=== PATIENT | female | born 1945 | race Hispanic/Latino ===

== ENCOUNTER 2017-04-26 17:37 | Inpatient (IN) | payer MEDICARE ==
[2017-04-26] MEDS ORDERED: Sodium Chloride 0.9% 500 ML IV ONE ×2 (18:37→19:04)
[2017-04-26 19:23] LABS: BASO % 0.3 % (0.0-2.0); EOS # 0.1 K/uL (0.0-0.7); EOS % 0.8 % (0.0-4.0); HEMATOCRIT 40.3 % (34.0-47.0); LYMPH % 10.4 % (20.0-40.0); MEAN CELL VOLUME 80.9 fL (81.0-99.0); MEAN CORPUSCULAR HEMOGLOBIN 26.7 pg (27.0-31.0); MEAN PLATELET VOLUME 9.1 fL (7.2-11.7); MONO # 0.7 K/uL (0.0-0.8); MONO % 7.6 % (0.0-10.0); RED CELL DISTRIBUTION WIDTH 14.7 % (11.5-14.5); WHITE BLOOD COUNT 9.2 K/uL (4.8-10.8)
[2017-04-26 19:24] LABS: RBC URINE 2 /hpf (0-3); URINE BILIRUBIN NEGATIVE (NEGATIVE); URINE BLOOD TRACE (NEGATIVE); URINE COLOR Colorless (YELLOW); URINE GLUCOSE (UA) NORMAL (Normal); URINE KETONE NEGATIVE (NEGATIVE); URINE LEUKOCYTE ESTERASE NEG Leu/uL (Negative); URINE PROTEIN NEGATIVE (NEGATIVE); URINE UROBILINOGEN NORMAL mg/dL (0.2-1.0); WBC URINE 1 /hpf (0-5)
[2017-04-26 19:28] LABS: CHLORIDE 95 mmol/L (98-107); POTASSIUM 3.4 mmol/L (3.6-5.2); SODIUM 136 mmol/L (132-148)
[2017-04-26 19:30] LABS: ALB/GLOB RATIO 1.4 (1.0-2.1); AST/SGOT 33 U/L (14-36); BILIRUBIN,TOTAL 0.7 mg/dL (0.2-1.3); CARBON DIOXIDE 29 mmol/L (22-30); GFR AFRICAN-AMERICAN > 60
[2017-04-26 19:31] LABS: ALKALINE PHOSPHATASE 103 U/L (38-126); ALT/SGPT 33 U/L (9-52); BLOOD UREA NITROGEN 12 mg/dL (7-17); CALCIUM 9.7 mg/dl (8.6-10.4); GLUCOSE,RANDOM 79 mg/dL (65-105)
[2017-04-26 19:34] LABS: INR 2.7
[2017-04-26] MEDS ORDERED: Iodixanol 320 MG/ML 100 ML BOTTLE IV ONE (20:33)
--- NOTE | 2017-04-26 21:38 | CT ---
EXAM: CT Abdomen and Pelvis With Intravenous Contrast CLINICAL HISTORY: 71 years old, female; Pain; Abdominal pain; Flank; Left lower quadrant (llq); Additional info: Llq pain, R/O diverticulitis TECHNIQUE: Axial computed tomography images of the abdomen and pelvis with intravenous contrast. All CT scans at this facility use one or more dose reduction techniques, viz.: automated exposure control; ma/kV adjustment per patient size (including targeted exams where dose is matched to indication; i.e. head); or iterative reconstruction technique. Coronal and sagittal reformatted images were created and reviewed. CONTRAST: 100 mL of visipaque 320 administered intravenously. COMPARISON: No relevant prior studies available. FINDINGS: Limitations: Motion artifact - mild. Lower thorax: Moderate cardiomegaly. Valve replacement. Minimal atelectasis/scarring. ABDOMEN: Liver: Fatty infiltration. Apparent 0.5 x 0.5 x 0.7 cm enhancing lesion within RIGHT lobe. Gallbladder and bile ducts: No calcified stones. No ductal dilation. Pancreas: No ductal dilation. No mass. Spleen: No splenomegaly. Adrenals: No mass. Kidneys and ureters: Mild malrotation of RIGHT kidney. No hydronephrosis. Stomach and bowel: Scattered diverticula within colon. Ahmp-dt-hilsavhs mural thickening short segment of distal descending colon. Ffyu-qv-oapyzcco stranding within adjacent fat. No obstruction. Appendix: No findings to suggest acute appendicitis. PELVIS: Bladder: Unremarkable. Reproductive: Unremarkable as visualized. ABDOMEN and PELVIS: Intraperitoneal space: Trace free fluid within pelvis. No free air. Bones/joints: Median sternotomy. Degenerative changes of spine. No acute fracture. Soft tissues: Unremarkable. Vasculature: Mild atherosclerotic disease. No aneurysm. Lymph nodes: No pathologically enlarged lymph nodes. IMPRESSION: 1. Findings compatible with acute diverticulitis of descending colon. Recommend endoscopy following resolution. 2. Liver lesion, indeterminate. Recommend nonemergent MRI. 3. Incidental/non-acute findings are described above.
--- NOTE | 2017-04-26 22:14 | C.PDOC ---
Time Seen by Provider: 04/26/17 18:19 Chief Complaint (Nursing): Abdominal Pain History Per: Patient, Family Onset/Duration Of Symptoms: Days (9) Current Symptoms Are (Timing): Still Present Severity: Moderate Location Of Pain/Discomfort: LLQ Quality Of Discomfort: "Pain" Associated Symptoms: Diarrhea, Back Pain Exacerbating Factors: Food Alleviating Factors: None Additional History Per: Prior Records Past Medical History Reviewed: Historical Data, Nursing Documentation Vital Signs: Last Vital Signs Temp 98.1 F 04/26/17 20:40 Pulse 88 04/26/17 20:40 Resp 18 04/26/17 20:40 BP 137/79 04/26/17 20:40 Pulse Ox 96 04/26/17 22:15 - Medical History PMH: HTN, Hypercholesterolemia Other Surgeries: Aortic valve replacement Family History: States: Unknown Family Hx - Social History Hx Tobacco Use: No Hx Alcohol Use: No Hx Substance Use: No - Immunization History Hx Tetanus Toxoid Vaccination: No Hx Influenza Vaccination: Yes Hx Pneumococcal Vaccination: Yes Review Of Systems Except As Marked, All Systems Reviewed And Found Negative. Constitutional: Negative for: Fever Cardiovascular: Negative for: Chest Pain Respiratory: Negative for: Shortness of Breath Gastrointestinal: Positive for: Abdominal Pain. Negative for: Vomiting, Melena , Hematochezia, Hematemesis Genitourinary: Negative for: Dysuria Musculoskeletal: Positive for: Back Pain (low). Negative for: Neck Pain Skin: Negative for: Rash Neurological: Negative for: Weakness, Numbness, Seizures Physical Exam - Physical Exam Appears: No Acute Distress Skin: Normal Color, Warm, Dry Head: Atraumatic, Normacephalic Eye(s): bilateral: PERRL, EOMI Neck: Normal ROM, Supple Cardiovascular: Rhythm Regular Respiratory: Normal Breath Sounds, No Accessory Muscle Use Gastrointestinal/Abdominal: Soft, Tenderness (LLQ) Back: No CVA Tenderness Extremity: Normal ROM Neurological/Psych: Oriented x3, Normal Motor, Normal Sensation ED Course And Treatment - Laboratory Results Result Diagrams: 04/26/17 19:12 04/26/17 19:12 O2 Sat by Pulse Oximetry: 96 Pulse Ox Interpretation: Normal - CT Scan/US CT abd/pelv Other Rad Studies (CT/US): Read By Radiologist, Radiology Report Reviewed CT/US Interpretation: IMPRESSION: 1. Findings compatible with acute diverticulitis of descending colon. Recommend endoscopy following resolution. 2. Liver lesion, indeterminate. Recommend nonemergent MRI. 3. Incidental/non -acute findings are described above. Progress - Interventions Interventions:: Observation, Intravenous fluid - Medications Administered Intravenous: Opiate, Other (Abx) - Data Reviewed Data Reviewed: Lab, Diagnostic imaging, Old records - Patient Status Patient status: Partially improved - Continuity of Care Discussed patient case with:: Patient, Family-HIPPA compliant, ED Nurse, PMD - Patient Plan Patient Plan: Admission Disposition Discussed With DrJessie: Faith Contreras Comment: He accepted pt on his service. Doctor Will See Patient In The: Hospital Counseled Patient/Family Regarding: Studies Performed, Diagnosis - Disposition Disposition: HOSPITALIZED Disposition Time: 23:00 Condition: FAIR - Clinical Impression Clinical Impression: Acute diverticulitis
[2017-04-26] MEDS ORDERED: metroNIDAZOLE IV 500 mg/100 ml 500 MG/100 ML BAG IVPB STA (22:17)
[2017-04-26] MEDS ORDERED: Ciprofloxacin 400mg/200ml D5W 400 MG/200 ML BAG IVPB STA (22:17)
[2017-04-26] MEDS ORDERED: Ciprofloxacin 400mg/200ml D5W 400 MG/200 ML BAG IVPB ONE (22:33)
[2017-04-26] MEDS ORDERED: metroNIDAZOLE IV 500 mg/100 ml 500 MG/100 ML BAG ONE (22:34)
[2017-04-26] MEDS ORDERED: Morphine 4 MG/ML VIAL ONE (23:33)
[2017-04-27] MEDS: Acetylcysteine 20% Inhal Soln (4ml) INH SCH ×5 (00:30→19:24)
[2017-04-27] MEDS: metroNIDAZOLE IV 500 mg/100 ml 500 MG/100 ML BAG IVPB SCH ×3 (06:06→22:12)
[2017-04-27] MEDS ORDERED: Potassium Chloride 20 mEq ER Tab PO ONE (10:00)
[2017-04-27] MEDS ORDERED: Albuterol 0.083% Inhal Sol (2.5 mg/3 mL) UD IH SCH (10:00)
[2017-04-27] MEDS ORDERED: Ciprofloxacin 400mg/200ml D5W 400 MG/200 ML BAG IVPB SCH (10:00)
[2017-04-27] MEDS: Ciprofloxacin 400mg/200ml D5W 400 MG/200 ML BAG IVPB SCH ×2 (10:43→22:13)
[2017-04-27] MEDS: Albuterol 0.083% Inhal Sol (2.5 mg/3 mL) UD IH SCH ×2 (13:45→19:25)
[2017-04-27] MEDS: Fluticasone-Salmeterol 250-50mcg Diskus IH SCH (19:25)
[2017-04-28] MEDS: Acetylcysteine 20% Inhal Soln (4ml) INH SCH ×4 (02:55→19:21)
[2017-04-28] MEDS: Albuterol 0.083% Inhal Sol (2.5 mg/3 mL) UD IH SCH ×4 (02:55→19:21)
--- NOTE | 2017-04-28 04:07 | HP ---
HISTORY OF PRESENT ILLNESS: This is a 71-year-old [place] female with a history of multiple medical problems who presented to emergency room with symptoms of abdominal pain for one week duration. The patient was evaluated and she was found to have tenderness in the left lower quadrant with CAT scan finding of diverticulitis of the descending colon. The patient was admitted for further management. The patient has stated that she has intermittent diarrhea during the last one week, but denies any rectal bleeding. REVIEW OF SYSTEMS: Other review of systems is negative. ALLERGIES: NO KNOWN ALLERGY. HOME MEDICATIONS: Warfarin 2 mg daily, CellCept 1000 mg twice a day, Plaquenil 200 mg twice a day, Lasix 20 mg daily, bisoprolol 10 mg daily, and Lipitor 10 mg daily. PAST MEDICAL HISTORY: 1. Status post aortic valve replacement with prosthetic valve, on anticoagulant. 2. Interstitial lung disease. 3. Systemic lupus erythematosus. 4. Hypertension. SOCIAL HISTORY: No history of smoking, ETOH, or substance abuse. FAMILY HISTORY: Not contributory. PHYSICAL EXAMINATION GENERAL: The patient is in bed, comfortable, not in any cardiopulmonary distress. VITAL SIGNS: Blood pressure 107/64, temperature 98.7, respiratory rate 20, and pulse 82. HEENT: Pupils are equal and reactive to light. Normal-appearing mucosa of the conjunctivae, oropharyngeal and nasal membrane mucosa. NECK: Supple. No JVD. No carotid bruit. No lymph nodes. No thyromegaly. CHEST AND LUNGS: Bilateral symmetrical expansion. Good air exchange. No rales. No rhonchi. CARDIOVASCULAR: PMI not localized. S1 and S2. No additional sounds. ABDOMEN: Normoactive bowel sounds. Tenderness of the left lower quadrant. No organomegaly. No masses. EXTREMITIES: No cyanosis, no clubbing, no edema. CENTRAL NERVOUS SYSTEM: Alert, awake, and oriented x3. No neurological deficits could be appreciated. ASSESSMENT: 1. Diverticulitis of the descending colon. 2. Interstitial lung disease. 3. Systemic lupus erythematosus. 4. Hypertension. PLAN: Continue current medications and to restart Cipro 400 mg IV q. 12 hours and Flagyl 500 mg three times a day and we will decrease the dose of CellCept until the infection will be controlled. We will do GI consult. [facility] MD Ben [facility] # [id number]
[2017-04-28] MEDS: metroNIDAZOLE IV 500 mg/100 ml 500 MG/100 ML BAG IVPB SCH ×3 (05:28→21:14)
[2017-04-28] MEDS: Fluticasone-Salmeterol 250-50mcg Diskus IH SCH ×2 (07:36→19:21)
[2017-04-28] MEDS: Lidocaine 5% Patch TD SCH (10:00)
[2017-04-28] MEDS: Ciprofloxacin 400mg/200ml D5W 400 MG/200 ML BAG IVPB SCH ×2 (10:04→21:53)
[2017-04-28 12:07] LABS: INR 4.2
--- NOTE | 2017-04-28 20:15 | PN ---
DATE: 04/28/2017 DAILY PROGRESS NOTE SUBJECTIVE: She has still lower abdominal pain that require Morphine. PHYSICAL EXAMINATION: VITAL SIGNS: Blood pressure 112/67, temperature 98.5, respiratory rate 20, pulse 90. HEENT: Pupils are equal and reactive to light. Normal-appearing mucosa of the conjunctivae, oropharyngeal and nasal membrane mucosa. NECK: Supple. No JVD. No carotid bruit. No lymph node. No thyromegaly. CHEST AND LUNGS: Bilateral symmetrical expansion. Good air exchange. No rales. No rhonchi. CARDIOVASCULAR: PMI not localized. S1 and S2. No additional sounds. ABDOMEN: Normal active bowel sounds. No tenderness. No organomegaly. No masses. EXTREMITIES: No cyanosis. No clubbing. No edema. CLINICAL EDUCATION SPECIALIST: Alert, awake, and oriented x3. No neurological deficits could be appreciated. ASSESSMENT: 1. Descending colon diverticulitis. 2. Interstitial lung disease. 3. Hypertension. 4. Prosthetic aortic valve. PLAN: Continue current IV antibiotics and monitor PT/INR, GI consult. We will add probiotic. Faith Contreras MD
[2017-04-29] MEDS: Acetylcysteine 20% Inhal Soln (4ml) INH SCH ×4 (01:25→19:33)
[2017-04-29] MEDS: Albuterol 0.083% Inhal Sol (2.5 mg/3 mL) UD IH SCH ×4 (01:25→19:33)
[2017-04-29] MEDS: metroNIDAZOLE IV 500 mg/100 ml 500 MG/100 ML BAG IVPB SCH ×3 (05:24→22:05)
[2017-04-29] MEDS: Fluticasone-Salmeterol 250-50mcg Diskus IH SCH ×2 (07:25→19:34)
[2017-04-29] MEDS: Ciprofloxacin 400mg/200ml D5W 400 MG/200 ML BAG IVPB SCH ×2 (09:18→22:09)
[2017-04-29] MEDS: Lidocaine 5% Patch TD SCH (09:29)
[2017-04-29 11:48] LABS: CHLORIDE 101 mmol/L (98-107); POTASSIUM 3.8 mmol/L (3.6-5.2); SODIUM 134 mmol/L (132-148)
[2017-04-29 11:50] LABS: BILIRUBIN,TOTAL 0.5 mg/dL (0.2-1.3); GFR AFRICAN-AMERICAN > 60
[2017-04-29 11:51] LABS: ALB/GLOB RATIO 1.2 (1.0-2.1); ALKALINE PHOSPHATASE 61 U/L (38-126); ALT/SGPT 27 U/L (9-52); AST/SGOT 25 U/L (14-36); BLOOD UREA NITROGEN 4 mg/dL (7-17); CALCIUM 8.2 mg/dl (8.6-10.4); CARBON DIOXIDE 23 mmol/L (22-30); GLUCOSE,RANDOM 132 mg/dL (65-105); TOTAL PROTEIN 6.6 g/dL (6.3-8.3)
--- NOTE | 2017-04-29 16:46 | CP.PCM.CON ---
History of Present Illness - History of Present Illness History of Present Illness: CC: Diverticulitis HPI: 71 year old woman admitted with moderate LLQ pain and diarrhea, found to have descending colon diverticulitis on CT scan. Patient was admitted 2 days ago , and is being treated with Cipro and Flagyl and reports improvement in abdominal pain. She had a good BM today and is tolerating liquid diet. Patient denies rectal bleeding. Review of Systems - Constitutional Constitutional: absent: Chills, Fever - EENT Eyes: absent: Change in Vision Ears: absent: Tinnitus Nose/Mouth/Throat: absent: Nasal Discharge - Cardiovascular Cardiovascular: absent: Chest Pain - Respiratory Respiratory: absent: Dyspnea - Gastrointestinal Gastrointestinal: Abdominal Pain, Loose Stools. absent: Dysphagia, Melena, Nausea - Genitourinary Genitourinary: absent: Dysuria - Musculoskeletal Musculoskeletal: absent: Back Pain - Integumentary Integumentary: absent: Dry Skin - Neurological Neurological: absent: Vertigo - Psychiatric Psychiatric: absent: Anxiety - Hematologic/Lymphatic Hematologic: absent: Easy Bruising Past Patient History - Past Medical History & Family History Past Medical History?: Yes - Past Social History Smoking Status: Never Smoked - CARDIAC Hx Cardiac Disorders: Yes Hx Hypercholesterolemia: Yes Hx Hypertension: Yes - PULMONARY Hx Respiratory Disorders: No - NEUROLOGICAL Hx Neurological Disorder: No - HEENT Hx HEENT Problems: No - RENAL Hx Chronic Kidney Disease: No - ENDOCRINE/METABOLIC Hx Endocrine Disorders: No - HEMATOLOGICAL/ONCOLOGICAL Hx Blood Disorders: No - INTEGUMENTARY Hx Dermatological Problems: No - MUSCULOSKELETAL/RHEUMATOLOGICAL Hx Musculoskeletal Disorders: Yes (SLE) Hx Falls: No - GASTROINTESTINAL Hx Gastrointestinal Disorders: No - GENITOURINARY/GYNECOLOGICAL Hx Genitourinary Disorders: No - PSYCHIATRIC Hx Psychophysiologic Disorder: No Hx Substance Use: No - SURGICAL HISTORY Hx Surgeries: No Hx Vascular Surgery: Yes (Aortic Valve Replacement) Other/Comment: Aortic valve replacement - ANESTHESIA Hx Anesthesia: Yes Hx Anesthesia Reactions: No Meds Allergies/Adverse Reactions: Allergies Allergy/AdvReac Type Severity Reaction Status Date / Time No Known Allergies Allergy Verified 04/26/17 17:53 - Medications Medications: Current Medications Acetylcysteine (Acetylcysteine 20%) 4 ml INH RQ6 [facility] Last Admin: 04/29/17 13:14 Dose: 4 ml Albuterol Sulfate (Albuterol 0.083% Inhal Tere (2.5 Mg/3 Ml) Ud) 2.5 mg IH RQ6 [facility] Last Admin: 04/29/17 13:14 Dose: 2.5 mg Bisoprolol Fumarate (Zebeta) 10 mg PO DAILY [facility] Last Admin: 04/29/17 09:16 Dose: 10 mg Hydroxychloroquine Sulfate (Plaquenil) 400 mg PO DAILY [facility] Last Admin: 04/29/17 09:16 Dose: 400 mg Metronidazole (Flagyl) 500 mg in 100 mls @ 100 mls/hr IVPB Q8 [facility] Last Admin: 04/29/17 14:08 Dose: 100 mls/hr Ciprofloxacin (Cipro 400mg/200ml Dsw) 400 mg in 200 mls @ 133 mls/hr IVPB Q12H [facility] Last Admin: 04/29/17 09:18 Dose: 133 mls/hr Lidocaine (Lidoderm) 2 ea TD DAILY [facility] Last Admin: 04/29/17 09:29 Dose: 2 ea Morphine Sulfate (Morphine) 2 mg IVP Q4 PRN PRN Reason: Pain, severe (8-10) Last Admin: 04/29/17 14:05 Dose: 2 mg Mycophenolate Mofetil (Cellcept) 500 mg PO Q12H [facility] Last Admin: 04/29/17 05:27 Dose: 500 mg Rosuvastatin Calcium (Crestor) 5 mg PO HS [facility] Last Admin: 04/28/17 21:14 Dose: 5 mg Fluticasone/Salmeterol (Advair Diskus 250/50) 1 puff IH RQ12 [facility] Last Admin: 04/29/17 07:25 Dose: 1 puff Physical Exam - Constitutional Appears: No Acute Distress - Head Exam Head Exam: NORMOCEPHALIC - Eye Exam Eye Exam: absent: Scleral icterus - Neck Exam Neck exam: Negative for: Thyromegaly - Respiratory Exam Respiratory Exam: NORMAL BREATHING PATTERN - Cardiovascular Exam Cardiovascular Exam: Systolic Murmur (Valve click present) - GI/Abdominal Exam GI & Abdominal Exam: Soft. absent: Distended, Mass, Rebound, Tenderness Results - Vital Signs Recent Vital Signs: Last Vital Signs Temp 98.1 F 04/29/17 15:00 Pulse 80 04/29/17 15:00 Resp 20 04/29/17 15:00 BP 117/71 04/29/17 15:00 Pulse Ox 99 04/29/17 15:00 - Labs Result Diagrams: 04/26/17 19:12 04/29/17 11:11 Labs: Laboratory Results - last 24 hr 04/29/17 04/29/17 07:04 11:11 PT 59.6 H* D INR 5.0 Sodium 134 Potassium 3.8 Chloride 101 Carbon Dioxide 23 Anion Gap 14 BUN 4 L Creatinine 0.6 L Est GFR ( Amer) > 60 Est GFR (Non-Af Amer) > 60 Random Glucose 132 H Calcium 8.2 L Total Bilirubin 0.5 AST 25 ALT 27 Alkaline Phosphatase 61 Total Protein 6.6 Albumin 3.6 Globulin 3.0 Albumin/Globulin Ratio 1.2 Assessment & Plan (1) Acute diverticulitis Assessment and Plan: Improving Continue Cipro/Flagyl and advance diet as tolerated Status: Acute (2) Benign neoplasm of liver Assessment and Plan: Incidentally found on CT scan. Likely benign. No prior CT available for comparison. Recommend follow up CT in future Status: Acute (3) H/O aortic valve replacement Assessment and Plan: On chronic anticoagulation Management per medical team Status: Acute (4) Systemic lupus erythematosus Assessment and Plan: On Cellcept for this Management per medicine Status: Acute - Date & Time Date: 04/29/17 Time: 16:52
[2017-04-30] MEDS: Acetylcysteine 20% Inhal Soln (4ml) INH SCH ×4 (01:15→19:36)
[2017-04-30] MEDS: Albuterol 0.083% Inhal Sol (2.5 mg/3 mL) UD IH SCH ×4 (01:16→19:36)
[2017-04-30] MEDS: metroNIDAZOLE IV 500 mg/100 ml 500 MG/100 ML BAG IVPB SCH ×3 (05:34→23:35)
[2017-04-30] MEDS: Fluticasone-Salmeterol 250-50mcg Diskus IH SCH ×2 (07:41→19:36)
[2017-04-30] MEDS: Ciprofloxacin 400mg/200ml D5W 400 MG/200 ML BAG IVPB SCH ×2 (09:23→21:59)
[2017-04-30] MEDS: Lidocaine 5% Patch TD SCH (09:29)
--- NOTE | 2017-04-30 09:39 | PN ---
DATE: 04/29/2017 SUBJECTIVE: She is not in any cardiopulmonary distress and the patient has still lower abdominal pain, more towards the left side. PHYSICAL EXAMINATION VITAL SIGNS: Blood pressure 128/62, temperature 98.1, respiratory rate 20, and pulse 90. HEENT: Pupils are equal and reactive to light. Normal-appearing mucosa of the conjunctivae, oropharyngeal, and nasal membrane mucosa. NECK: Supple. No JVD. No carotid bruit. No lymph node. No thyromegaly. CHEST AND LUNGS: Bilateral symmetrical expansion. Good air exchange. No rales. No rhonchi. CARDIOVASCULAR: PMI not localized. S1 and S2. No additional sounds. ABDOMEN: Normoactive bowel sounds. The patient has left lower quadrant tenderness, but no rebound tenderness or rigidity. No organomegaly. No masses. EXTREMITIES: No cyanosis. No clubbing. No edema. CENTRAL NERVOUS SYSTEM: Alert, awake, and oriented x 3. No neurological deficits could be appreciated. ASSESSMENT: 1. Diverticulitis of the descending colon. 2. Systemic lupus erythematosus. 3. Status post aortic valve replacement with prosthetic valve. 4. Elevated INR secondary to antibiotics, even Coumadin is being withheld. PLAN: Continue current medications and antibiotics and follow GI recommendations. We will continue to hold Coumadin and monitor PT/INR. Faith Contreras MD
[2017-04-30 11:41] LABS: BASO % 0.3 % (0.0-2.0); EOS # 0.1 K/uL (0.0-0.7); EOS % 1.7 % (0.0-4.0); HEMATOCRIT 34.9 % (34.0-47.0); LYMPH # 0.5 K/uL (1.0-4.3); LYMPH % 8.4 % (20.0-40.0); MEAN CELL VOLUME 81.2 fL (81.0-99.0); MEAN CORPUSCULAR HEMOGLOBIN 26.5 pg (27.0-31.0); MEAN CORPUSCULAR HGB CONC 32.7 g/dL (33.0-37.0); MEAN PLATELET VOLUME 9.4 fL (7.2-11.7); MONO # 0.7 K/uL (0.0-0.8); MONO % 10.1 % (0.0-10.0); RED CELL DISTRIBUTION WIDTH 14.9 % (11.5-14.5); WHITE BLOOD COUNT 6.5 K/uL (4.8-10.8)
[2017-04-30 11:48] LABS: INR 5.5
[2017-04-30 11:50] LABS: PLATELET COUNT 125 K/uL (130-400)
[2017-04-30 12:25] LABS: EOSINOPHIL 2 % (0-4); NEUTROPHIL 79 % (50-75); TOTAL CELLS COUNTED 100
[2017-04-30] MEDS: Saccharomyces Boulardi 250 mg Cap PO SCH (17:52)
--- NOTE | 2017-04-30 18:17 | CP.PCM.PN ---
Subjective - Date & Time of Evaluation Date of Evaluation: 04/30/17 Time of Evaluation: 18:00 - Subjective Subjective: F/U abdom pain. and daughter are present. Reports less LLQ aabd pain. Poor appetite. Denies fever, chills, SZ, LOC, ALEXIS cough, RB, hematuria Objective - Vital Signs/Intake and Output Vital Signs (last 24 hours): Temp Pulse Resp BP Pulse Ox 98.1 F 88 18 125/80 96 04/30/17 16:00 04/30/17 16:00 04/30/17 16:00 04/30/17 16:00 04/30/17 16:00 Intake and Output: 04/30/17 04/30/17 06:59 18:59 Intake Total 970 Output Total 0 Balance 970 - Medications Medications: Current Medications Acetylcysteine (Acetylcysteine 20%) 4 ml INH RQ6 [facility] Last Admin: 04/30/17 14:30 Dose: 4 ml Albuterol Sulfate (Albuterol 0.083% Inhal Tere (2.5 Mg/3 Ml) Ud) 2.5 mg IH RQ6 [facility] Last Admin: 04/30/17 14:30 Dose: 2.5 mg Bisoprolol Fumarate (Zebeta) 10 mg PO DAILY [facility] Last Admin: 04/30/17 09:23 Dose: 10 mg Hydroxychloroquine Sulfate (Plaquenil) 400 mg PO DAILY [facility] Last Admin: 04/30/17 09:22 Dose: 400 mg Metronidazole (Flagyl) 500 mg in 100 mls @ 100 mls/hr IVPB Q8 [facility] Last Admin: 04/30/17 13:46 Dose: 100 mls/hr Ciprofloxacin (Cipro 400mg/200ml Dsw) 400 mg in 200 mls @ 133 mls/hr IVPB Q12H [facility] Last Admin: 04/30/17 09:23 Dose: 133 mls/hr Lidocaine (Lidoderm) 2 ea TD DAILY [facility] Last Admin: 04/30/17 09:29 Dose: 2 ea Morphine Sulfate (Morphine) 2 mg IVP Q4 PRN PRN Reason: Pain, severe (8-10) Last Admin: 04/30/17 02:49 Dose: 2 mg Mycophenolate Mofetil (Cellcept) 500 mg PO Q12H [facility] Last Admin: 04/30/17 05:33 Dose: 500 mg Rosuvastatin Calcium (Crestor) 5 mg PO HS [facility] Last Admin: 04/29/17 22:07 Dose: 5 mg Saccharomyces Boulardii (Florastor) 250 mg PO BID [facility] Last Admin: 04/30/17 17:52 Dose: 250 mg Fluticasone/Salmeterol (Advair Diskus 250/50) 1 puff IH RQ12 [facility] Last Admin: 04/30/17 07:41 Dose: 1 puff - Labs Labs: 04/30/17 11:36 04/29/17 11:11 PT 66.6 SECONDS (9.7-12.2) H* D 04/30/17 11:36 INR 5.5 04/30/17 11:36 APTT 46 SECONDS (21-34) H 04/26/17 19:12 - Constitutional Appears: Well - Respiratory Exam Respiratory Exam: Clear to Ausculation Bilateral - Cardiovascular Exam Cardiovascular Exam: RRR - GI/Abdominal Exam GI & Abdominal Exam: Soft, Tenderness, Normal Bowel Sounds. absent: Guarding, Rebound Additional comments: Mild LLQ tenderness - Extremities Exam Extremities Exam: absent: Pedal Edema - Neurological Exam Neurological Exam: Alert, Oriented x3 Assessment and Plan (1) Acute diverticulitis Assessment & Plan: Improving. On regualr diet. Antibiotics. Check po Status: Acute (2) Benign neoplasm of liver Assessment & Plan: F/U as outpatient Status: Acute (3) H/O aortic valve replacement Assessment & Plan: on coumadin Status: Acute (4) Systemic lupus erythematosus Status: Acute (5) Elevated lipase Assessment & Plan: No evidence of pancreatitis. Status: Acute
[2017-04-30 23:18] VITALS: RESP 20
[2017-05-01] MEDS: Acetylcysteine 20% Inhal Soln (4ml) INH SCH ×3 (01:23→13:18)
[2017-05-01] MEDS: Albuterol 0.083% Inhal Sol (2.5 mg/3 mL) UD IH SCH ×3 (01:23→13:18)
[2017-05-01] MEDS: metroNIDAZOLE IV 500 mg/100 ml 500 MG/100 ML BAG IVPB SCH ×2 (05:16→13:53)
[2017-05-01 07:49] LABS: INR 2.3
[2017-05-01 08:26] VITALS: BP 108/77; PULSE 98; TEMP 98.2; O2SAT 97
--- NOTE | 2017-05-01 08:38 | PN ---
DATE: 04/30/2017 SUBJECTIVE: The patient is seen today on 04/30/2017. She has less abdominal pain, and patient is started on the advanced diet to regular food. PHYSICAL EXAMINATION: VITAL SIGNS: Blood pressure 143/87, temperature 98.0, respiratory rate 20, and pulse 87. HEENT: Pupils equal and reactive to light. Normal-appearing mucosa of the conjunctivae, oropharyngeal and nasal membrane mucosa. NECK: Supple. No JVD. No carotid bruit. No lymph node. No thyromegaly. CHEST AND LUNGS: Bilateral symmetrical expansion. Good air exchange. No rales. No rhonchi. CARDIOVASCULAR SYSTEM: PMI not localized. S1, S2. No additional sounds. ABDOMEN: Normoactive bowel sounds. No tenderness. No organomegaly. No masses. EXTREMITIES: No cyanosis. No clubbing. No edema. CENTRAL VENOUS SYSTEM: Alert, awake, oriented x3. No neurological deficit could be appreciated. ASSESSMENT: 1. Diverticulitis of the left ascending colon. 2. Interstitial lung disease. 3. Hypertension. 4. Status post prosthetic valve. Status post aortic valve replacement. INR today is 5.6. PLAN: We will give patient vitamin K 2.5 mg, advance diet and continue current medications. We will monitor another PT and INR tomorrow. Faith Contreras MD
[2017-05-01] MEDS: Fluticasone-Salmeterol 250-50mcg Diskus IH SCH (09:37)
[2017-05-01] MEDS: Ciprofloxacin 400mg/200ml D5W 400 MG/200 ML BAG IVPB SCH (10:00)
[2017-05-01] MEDS: Saccharomyces Boulardi 250 mg Cap PO SCH (10:00)
[2017-05-01] MEDS: Lidocaine 5% Patch TD SCH (10:01)
--- NOTE | 2017-05-01 11:26 | CP.PCM.PN ---
Subjective - Date & Time of Evaluation Date of Evaluation: 05/01/17 Time of Evaluation: 11:23 - Subjective Subjective: CC: follow up of Diverticulitis Less abdominal pain. On IV antibiotics. Afraid to eat. Objective - Vital Signs/Intake and Output Vital Signs (last 24 hours): Temp Pulse Resp BP Pulse Ox 98.2 F 98 H 20 108/77 97 05/01/17 07:40 05/01/17 07:40 05/01/17 07:40 05/01/17 07:40 05/01/17 07:40 Intake and Output: 05/01/17 05/01/17 06:59 18:59 Intake Total 500 Balance 500 - Medications Medications: Current Medications Acetylcysteine (Acetylcysteine 20%) 4 ml INH RQ6 [facility] Last Admin: 05/01/17 07:22 Dose: 4 ml Albuterol Sulfate (Albuterol 0.083% Inhal Tere (2.5 Mg/3 Ml) Ud) 2.5 mg IH RQ6 [facility] Last Admin: 05/01/17 07:22 Dose: 2.5 mg Bisoprolol Fumarate (Zebeta) 10 mg PO DAILY [facility] Last Admin: 05/01/17 10:02 Dose: 10 mg Hydroxychloroquine Sulfate (Plaquenil) 400 mg PO DAILY [facility] Last Admin: 05/01/17 10:02 Dose: 400 mg Metronidazole (Flagyl) 500 mg in 100 mls @ 100 mls/hr IVPB Q8 [facility] Last Admin: 05/01/17 05:16 Dose: 100 mls/hr Ciprofloxacin (Cipro 400mg/200ml Dsw) 400 mg in 200 mls @ 133 mls/hr IVPB Q12H [facility] Last Admin: 05/01/17 10:00 Dose: 133 mls/hr Lidocaine (Lidoderm) 2 ea TD DAILY [facility] Last Admin: 05/01/17 10:01 Dose: 2 ea Morphine Sulfate (Morphine) 2 mg IVP Q4 PRN PRN Reason: Pain, severe (8-10) Last Admin: 04/30/17 02:49 Dose: 2 mg Mycophenolate Mofetil (Cellcept) 500 mg PO Q12H [facility] Last Admin: 05/01/17 05:16 Dose: 500 mg Rosuvastatin Calcium (Crestor) 5 mg PO HS [facility] Last Admin: 04/30/17 21:59 Dose: 5 mg Saccharomyces Boulardii (Florastor) 250 mg PO BID [facility] Last Admin: 05/01/17 10:00 Dose: 250 mg Fluticasone/Salmeterol (Advair Diskus 250/50) 1 puff IH RQ12 [facility] Last Admin: 05/01/17 09:37 Dose: 1 puff - Labs Labs: 04/30/17 11:36 04/29/17 11:11 PT 27.0 SECONDS (9.7-12.2) H D 05/01/17 07:39 INR 2.3 D 05/01/17 07:39 APTT 46 SECONDS (21-34) H 04/26/17 19:12 - Constitutional Appears: No Acute Distress - Head Exam Head Exam: NORMOCEPHALIC - Eye Exam Eye Exam: absent: Scleral icterus - Respiratory Exam Respiratory Exam: Clear to Ausculation Bilateral - Cardiovascular Exam Cardiovascular Exam: Clicks, REGULAR RHYTHM - GI/Abdominal Exam GI & Abdominal Exam: Soft, Normal Bowel Sounds. absent: Distended, Tenderness Assessment and Plan (1) Acute diverticulitis Assessment & Plan: Clinically improving Rec: Monitor on solids. Continue Cipro and Flagyl Status: Acute (2) Benign neoplasm of liver Assessment & Plan: Recommend follow up CT in 3-6 months Status: Acute (3) H/O aortic valve replacement Assessment & Plan: On Coumadin Managed by PCP Status: Acute (4) Systemic lupus erythematosus Status: Acute
--- NOTE | 2017-05-01 17:41 | CP.PCM.PN ---
Subjective - Date & Time of Evaluation Date of Evaluation: 05/01/17 Time of Evaluation: 11:00 - Subjective Subjective: Alert, awake, no sob or chest pains. Objective - Vital Signs/Intake and Output Vital Signs (last 24 hours): Temp Pulse Resp BP Pulse Ox 98.2 F 98 H 20 108/77 97 05/01/17 07:40 05/01/17 07:40 05/01/17 07:40 05/01/17 07:40 05/01/17 07:40 Intake and Output: 05/01/17 05/01/17 06:59 18:59 Intake Total 500 Balance 500 - Labs Labs: 04/30/17 11:36 04/29/17 11:11 PT 27.0 SECONDS (9.7-12.2) H D 05/01/17 07:39 INR 2.3 D 05/01/17 07:39 APTT 46 SECONDS (21-34) H 04/26/17 19:12 Assessment and Plan - Assessment and Plan (Free Text) Assessment: Patient is seen and examined. Alert ad orientedx3, tolerating diet. Cleared by GI, plan to discharge home on cipro and flagyl as per DR Contreras. Advised to follow up in the office in 1 week. Patient verbalized understanding.
--- NOTE | 2017-05-02 05:18 | DS ---
REASON FOR ADMISSION: This is a 71-year-old [place] female with history of multiple medical problems, who was admitted with diverticulitis of the sigmoid colon. COURSE OF HOSPITALIZATION: Patient was admitted to medical floor and she was started on IV fluid, liquid diet as well as Cipro and Flagyl IV. Patient had a GI consult done with Dr. Ferreira. Patient's symptoms gradually improved and she was discharged home to complete Cipro and Flagyl p.o. for another week as well as probiotics. During this hospitalization, patient's INR was being monitored as the patient is on chronic anticoagulation therapy for prosthetic aortic valve. FINAL DIAGNOSES: 1. Diverticulitis of the sigmoid colon. 2. Interstitial lung disease. 3. Systemic lupus erythematosus. 4. Status post prosthetic aortic valve replacement. [facility] MD Ben
== END 2017-05-01 16:00 | disposition home or self-care (01) | DRG 392 ==
LOC: C.ER 17:37 → C.9E 23:01 → C.3T 23:44 → C.5S 04-30 12:25
PROVIDERS: ADMIT Internal Medicine; ATTEND Internal Medicine
DX: K57.32 Diverticulitis of large intestine without perforation or abscess without bleeding (principal); J84.9 Interstitial pulmonary disease, unspecified; M32.9 Systemic lupus erythematosus, unspecified; I10 Essential (primary) hypertension; D13.4 Benign neoplasm of liver; E78.00 Pure hypercholesterolemia, unspecified; R79.1 Abnormal coagulation profile; T45.515A Adverse effect of anticoagulants, initial encounter; T36.95XA Adverse effect of unspecified systemic antibiotic, initial encounter; Z95.2 Presence of prosthetic heart valve; Z79.01 Long term (current) use of anticoagulants; Z79.899 Other long term (current) drug therapy